=== PATIENT | female | born 1955 | race Hispanic/Latino ===

== ENCOUNTER 2024-01-08 06:22 | Emergency (ER) | payer OTHER, MEDICARE ==
[~2024-01-08] VITALS: Ht 157.5 cm; Wt 86.2 kg
[2024-01-08 08:27] VITALS: BP 143/84; PULSE 66; RESP 16; O2SAT 97
[2024-01-08] MEDS ORDERED: NAPR-1196 PO (09:01)
== END 2024-01-08 09:10 | disposition home or self-care (01) ==
LOC: EDH 06:22
DX: S70.01XA Contusion of right hip, initial encounter (principal); I10 Essential (primary) hypertension; W01.10XA Fall on same level from slipping, tripping and stumbling with subsequent striking against unspecified object, initial encounter; Y93.89 Activity, other specified; Y92.89 Other specified places as the place of occurrence of the external cause; Y99.8 Other external cause status
CPT/HCPCS: 73080; 73140; 73502; 73562

== ENCOUNTER → 2024-05-23 | Outpatient (CLI) | payer OTHER, MEDICARE ==
[~2024-05-23] MED LIST: NAPR-1196 PO
== END | disposition home or self-care (01) ==
LOC: RAH 13:57
PROVIDERS: ATTEND Family Medicine
DX: R16.0 Hepatomegaly, not elsewhere classified (principal); K57.30 Diverticulosis of large intestine without perforation or abscess without bleeding
CPT/HCPCS: 74176